=== PATIENT | male | born 1960 | race Caucasian/White ===

== ENCOUNTER 2016-11-01 11:33 | Emergency (ER) | payer BC ==
[2016-11-01 11:49] VITALS: BP 150/106
--- NOTE | 2016-11-01 11:58 | UC ---
Head Injury HPI - HPI Summary HPI Summary: The patient comes in today for: 1. Headache: Left side Onset: 2 days ago. Palliative/provocative: Advil last night helped. Ice helped. Quality: Burning ache Region: Left cheek and behind the eye socket on the left. Severity: 06/12 Time: Constant. Associated symptoms: Event: He tripped on some rocks and hit his left cheek on the fire pit. He hit a concrete block. LOC: He states that he had bleeding from both nostrils. He states that he has clear rhinorrhea from the left side. Nausea: Present. Aspirin was being taken 325 mg several times a day for 4-5 days prior to the fall. 8 beers the night of the injury. He has photophobia, but not phonophobia. * - History Of Current Complaint Chief Complaint: UCHeadInjury Stated Complaint: HEAD INJURY 10/30 Time Seen by Provider: 11/01/16 11:50 Hx Obtained From: Patient - Allergies/Home Medications Allergies/Adverse Reactions: Allergies Allergy/AdvReac Type Severity Reaction Status Date / Time No Known Allergies Allergy Verified 11/01/16 11:41 Home Medications: Home Medications Ibuprofen TAB* [Advil TAB*] 400 mg PO Q6H PRN 11/01/16 [History Confirmed ] PMH/Surg Hx/FS Hx/Imm Hx Previously Healthy: No Cardiovascular History: Hypertension - He has had this in the past, but has stopped his medications. Not seen PCP > 1 yr. - Surgical History Surgical History: None - Family History Known Family History: Positive: Hypertension, Diabetes - Social History Occupation: Employed Full-time Alcohol Use: Weekly - 12 pack/week. Substance Use Type: None Smoking Status (MU): Former Smoker Review of Systems Constitutional: Negative Skin: Rash - face eccymosis. ENT: Negative Respiratory: Negative Cardiovascular: Negative Gastrointestinal: Negative Genitourinary: Negative All Other Systems Reviewed And Are Negative: Yes Physical Exam Triage Information Reviewed: Yes Appearance: Well-Appearing, No Pain Distress, Well-Nourished, Other: - There is a linear ecchymosis from the left cheek up to the superior lateral cheek. Vital Signs: Initial Vital Signs Temp 98.7 F 11/01/16 11:43 Pulse 64 11/01/16 11:43 Resp 16 11/01/16 11:43 BP 150/106 11/01/16 11:43 Pulse Ox 100 11/01/16 11:43 Vital Signs Reviewed: Yes Eyes: Positive: Conjunctiva Clear. Negative: Discharge ENT: Positive: Pharynx normal. Negative: Pharyngeal erythema, Nasal congestion , Nasal drainage, TM bulging, TM dull, TM red, Tonsillar swelling, Tonsillar exudate, Other: - There is no periorbital or post auricular ecchymosis. No rhinitis or rhinorrhea or epistaxis. Dental: Negative: Gross Decay/Caries @, Dental Fracture @ Neck: Positive: Supple, Nontender, No Lymphadenopathy. Negative: Nuchal Rigidity Respiratory: Positive: Chest non-tender, Lungs clear, No respiratory distress, No accessory muscle use. Negative: Accessory muscle use, Stridor, Wheezing Cardiovascular: Positive: RRR, No Murmur Abdomen Description: Positive: Nontender, No Organomegaly, Soft. Negative: Distended, Guarding, Peritoneal Signs Musculoskeletal: Positive: Strength Intact, ROM Intact, No Edema Neurological: Positive: Alert, Muscle Tone Normal, Other: - Neurologic exam: Inspection: No fasciculations. Tone: No rigidity. Strenth: Upper extremity: symmetrical and appropriate for age. Lower extremity: symmetrical and appropriate for age. Cranial nerves: I-XII normal. Reflexes: Upper extremity Biceps: 2+/2 x 2 Triceps: 2+/2 x 2 Brachioradialis: 2+/2 x 2 Lower extremity: Achilles: 2+/2 x 2 Patellar: 2+/2 x 2 Babinski: downgoing bilaterally. Sensation: No complaints of loss of sensation. Coordination: Upper extremity: Finger to nose, patting of thighs (and alternating) and finger to thumb tests: Normal for both extremities. Lower extremity: Heel up and down giron: Normal for both extremities. Gait: Heel to toe: Normal REgular walking: Normal Rhomberg: Normal. Psychological: Positive: Age Appropriate Behavior, Consolable Skin: Negative: rashes, breakdown Diagnostics - Radiology No standard instances Xray Interpretation: No Acute Changes - Head CT: IMPRESSION: NO ACUTE INTRACRANIAL FINDINGS Facial bones CT: IMPRESSION: NO ACUTE FACIAL BONE FRACTURE. Head Injury Course/Dx - Course Course Of Treatment: Patient was told of the negative CT findings and recommended symptomatic treatment and observation. - Differential Dx/Diagnosis Provider Diagnoses: Head injury: Discharge - Discharge Plan Condition: Stable Disposition: HOME Patient Education Materials: Head Injury (ED), Concussion (ED) Additional Instructions: Please see your primary care provider next week to see how well you are doing. If you get worse between now and then, please be seen again by us or the ER. Take [id number] medications as needed for pain.
--- NOTE | 2016-11-01 12:55 | RAD ---
INDICATION: Intracranial injury COMPARISON: MRI brain May 12, 2013 TECHNIQUE: Noncontrast axial source images were acquired from the skull base to the vertex. FINDINGS: Ventricles/sulci: The ventricles and cisterns are normal in size and configuration for age. Brain parenchyma: There is no focal parenchymal finding, evidence of intracranial mass, or intracranial mass effect. Intracranial hemorrhage:None. Extra-axial spaces: There are no abnormal extra axial fluid collections or evidence of extra-axial mass. Calvarium: There is no calvarial fracture or other calvarial abnormality. Scalp: There is no evidence of scalp or extracalvarial soft tissue abnormality. Paranasal sinuses/mastoid: The paranasal sinuses and mastoid air cells are clear. Other: None. IMPRESSION: NO ACUTE INTRACRANIAL FINDINGS
--- NOTE | 2016-11-01 12:58 | RAD ---
INDICATION: Facial injury COMPARISON: None TECHNIQUE: Axial source images were acquired from the vertex of the mandible through the orbits. Coronal and sagittal reconstructed images were acquired. FINDINGS: Bones: There is no acute facial bone fracture. Orbits: The globes and intraconal structures appear intact. The optic nerves are symmetric. Extraocular muscles appear normal. There is no intraconal inflammatory change or retrobulbar mass.. Paranasal sinuses: There is mild circumferential mucoperiosteal thickening of left maxillary antrum. There is no air-fluid level. The paranasal sinuses are otherwise clear. Brain: There are no acute abnormalities of the visualized brain parenchyma. Soft tissues: Normal Other: None The visualized soft tissue elements about the neck appear normal. IMPRESSION: NO ACUTE FACIAL BONE FRACTURE.
== END 2016-11-01 13:34 | disposition home or self-care (01) ==
LOC: UCCORT 11:33
DX: S09.90XA Unspecified injury of head, initial encounter (principal); W01.118A Fall on same level from slipping, tripping and stumbling with subsequent striking against other sharp object, initial encounter; I10 Essential (primary) hypertension
CPT/HCPCS: 70450; 70486; 99211; G0463